=== PATIENT | female | born 1945 | race Caucasian/White ===

== ENCOUNTER → 2017-12-21 07:40 | Outpatient (CLI) | payer BC, SELFPAY ==
--- NOTE | 2017-12-21 | DI.MG.S_ITS ---
UNILATERAL RIGHT DIGITAL SCREENING MAMMOGRAM 3D/2D WITH CAD POST MASTECTOMY: 12/21/2017 CLINICAL: Routine screening. Personal history of left breast cancer. Post left mastectomy. Comparison is made to exams dated: 12/19/2016 mammogram, 12/10/2015 mammogram, and 11/26/2014 mammogram - [facility]. The tissue of the right breast is extremely dense, which lowers the sensitivity of mammography. Current study was also evaluated with a Computer Aided Detection (CAD) system. No significant masses, calcifications, or other findings are seen in the breast. There has been no significant interval change. IMPRESSION: NEGATIVE There is no mammographic evidence of malignancy. A 1 year screening mammogram is recommended. This exam was interpreted at Station ID: [id number]. NOTE: For mammograms, a report in lay terms will be sent to the patient. Approximately 15% of breast malignancies will not be visualized mammographically. In the management of a palpable breast mass, a negative mammogram must not discourage biopsy of a clinically suspicious lesion. Electronically Signed By: Harrison harding/noy:12/21/2017 13:12:50 letter sent: Normal Exam ACR BI-RADS Category 1: Negative 3341F
== END ==
PROVIDERS: Visit Provider Family Medicine
DX: Z12.31 Encounter for screening mammogram for malignant neoplasm of breast (principal); Z85.3 Personal history of malignant neoplasm of breast
CPT/HCPCS: 77063; 77065

== ENCOUNTER → 2018-12-30 07:39 | Outpatient (CLI) | payer BC, SELFPAY ==
--- NOTE | 2018-12-30 | DI.MG.S_ITS ---
UNILATERAL RIGHT DIGITAL SCREENING MAMMOGRAM 3D/2D WITH CAD POST MASTECTOMY: 12/30/2018 CLINICAL: Routine screening. Personal history of left breast cancer. Post left mastectomy. Comparison is made to exams dated: 12/21/2017 mammogram, 12/19/2016 mammogram, and 12/10/2015 mammogram - [facility]. The tissue of right breast is extremely dense, which lowers the sensitivity of mammography. Current study was also evaluated with a Computer Aided Detection (CAD) system. No significant masses, calcifications, or other findings are seen in the breast. There has been no significant interval change. IMPRESSION: NEGATIVE There is no mammographic evidence of malignancy. A 1 year screening mammogram is recommended. This exam was interpreted at Station ID: [id number]. NOTE: For mammograms, a report in lay terms will be sent to the patient. Approximately 15% of breast malignancies will not be visualized mammographically. In the management of a palpable breast mass, a negative mammogram must not discourage biopsy of a clinically suspicious lesion. Electronically Signed By: Otilia buckley/noy:12/30/2018 08:54:05 letter sent: Normal Exam ACR BI-RADS Category 1: Negative 3341F
== END ==
PROVIDERS: Family Provider Family Medicine; Visit Provider Family Medicine
DX: Z12.31 Encounter for screening mammogram for malignant neoplasm of breast (principal); Z80.3 Family history of malignant neoplasm of breast; Z90.12 Acquired absence of left breast and nipple
CPT/HCPCS: 77063; 77067

== ENCOUNTER → 2019-08-05 09:08 | Outpatient (CLI) | payer BC, SELFPAY | PROVIDERS: Family Provider Family Medicine; PCP Family Medicine; Visit Provider Family Medicine | DX: M81.0 Age-related osteoporosis without current pathological fracture (principal); Z78.0 Asymptomatic menopausal state; Z85.3 Personal history of malignant neoplasm of breast; Z87.891 Personal history of nicotine dependence | CPT/HCPCS: 77081 ==

== ENCOUNTER → 2020-01-07 08:12 | Outpatient (CLI) | payer BC, SELFPAY ==
--- NOTE | 2020-01-07 | DI.MG.S_ITS ---
UNILATERAL RIGHT DIGITAL SCREENING MAMMOGRAM 3D/2D WITH CAD POST MASTECTOMY: 01/07/2020 CLINICAL: Routine screening. Personal history of left breast cancer. Comparison is made to exams dated: 12/21/2017 mammogram, 12/19/2016 mammogram, and 12/10/2015 mammogram - [facility]. The tissue of right breast is heterogeneously dense. This may lower the sensitivity of mammography. Current study was also evaluated with a Computer Aided Detection (CAD) system. No significant masses, calcifications, or other findings are seen in the breast. There has been no significant interval change. IMPRESSION: NEGATIVE There is no mammographic evidence of malignancy. A 1 year screening mammogram is recommended. This exam was interpreted at Station ID: [id number]. NOTE: For mammograms, a report in lay terms will be sent to the patient. Approximately 15% of breast malignancies will not be visualized mammographically. In the management of a palpable breast mass, a negative mammogram must not discourage biopsy of a clinically suspicious lesion. Electronically Signed By: Fritz carrasco/noy:01/07/2020 09:25:07 letter sent: Normal Exam ACR BI-RADS Category 1: Negative 3341F
== END ==
PROVIDERS: Family Provider Family Medicine; PCP Family Medicine; Referring Provider Family Medicine; Visit Provider Family Medicine
DX: Z12.31 Encounter for screening mammogram for malignant neoplasm of breast (principal); Z85.3 Personal history of malignant neoplasm of breast
CPT/HCPCS: 77063; 77067

== ENCOUNTER 2020-05-11 08:04 | Day surgery (SDC) | payer BC, SELFPAY ==
[2020-05-11] MEDS: PROPARACAINE 0.5% OPHTH SOL 2 DROPS EYE-OP (09:30)
[2020-05-11] MEDS: CATARACT EYE COMPOUND (10 DROPS/SYRINGE) 3 DROPS EYE-OP (09:31)
[2020-05-11 09:36] VITALS: BP 113/74; PULSE 70; RESP 17; TEMP 36.7; O2SAT 98; BMI 20.9
--- NOTE | 2020-05-11 09:56 | P.OP_ITS ---
Operative Date/Time/Diagnoses Pre-op diagnosis: Nuclear Cataract Left eye Post-op diagnosis: same Procedure & Clinicians Same procedure as scheduled: Yes Surgeon: Jim Duron Anesthesia Type: MAC +/- and Sedation Operative Notes Procedure in detail: Patient brought to the operating suite. Tetracaine drops placed in the left eye. Patient was prepped and draped in sterile manner. Wire lid speculum was placed in the eye. Betadine drops were placed on the eye. This was irrigated. Lidocaine jelly was placed on the eye. A paracentesis port was created with a side-port blade. 0.1 mL 1% preservative free lidocaine was injected into the anterior chamber. The anterior chamber was deepened with viscoelastic. 2.6 mm keratome was used to create a temporal clear corneal incision. Cystotome and Utrata forceps were used to create continuous tear capsulorrhexis. Balanced salt solution was used to hydro dissect the nucleus. The phacoemulsification handpiece was inserted and the nucleus was removed using the stop and chop technique. The irrigation aspiration handpiece was inserted and the remaining cortex was removed. Anterior chamber was deepened with viscoe lastic. An Dodd ZCB00 intraocular lens with a power of 24.5 was injected into the capsular bag. Irrigation aspiration handpiece was inserted and the remaining viscoelastic was removed. Incision was hydrated with balanced salt solution and found to be leak free with pressure with Weck-Jailyn sponges. 0.1 mL Vigamox injected anterior chamber. 0.3 mL Kenalog 10 mg was injected subconjunctivally. Lid speculum was removed. The patient left the operating room in excellent condition. Complications: none Post-operative Condition: stable Disposition: same day surgery
--- NOTE | 2020-05-11 09:56 | PM.PREOP ---
Pre-operative Note Interval Note History & Physical reviewed/Exam performed by Physician: Yes Changes to H&P: No
[2020-05-11] MEDS: PHENYLEPHRINE/LIDOCAINE VIAL (OR) 0.2 ML EYE-OP (10:11)
[2020-05-11] MEDS: TRIAMCINOLONE 50 MG/5 ML VIAL INJ (10:13)
[2020-05-11] MEDS: MOXIFLOXACIN INJ 5 MG/ML VIAL EYE-OP (10:13)
[2020-05-11] MEDS: TETRACAINE 0.5% OPHTH DROPS 4 ML 2 DROPS EYE-OP (10:14)
[2020-05-11] MEDS: LIDOCAINE JELLY 2% 5 ML 1 APPLIC TOP (10:14)
[2020-05-11] MEDS: BALANCED SALT IRRIG SOLN NO.2 500 ML, EPINEPHrine 1 MG IRR (10:15)
[2020-05-11 10:30] VITALS: BP 120/75; PULSE 67; RESP 17; TEMP 36.2; O2SAT 99
[2020-05-11 10:49] VITALS: BP 108/70; PULSE 67; RESP 17; TEMP 36.6; O2SAT 99
--- NOTE | 2020-05-11 10:51 | SUR.PHASEII ---
pt leaving facility in facility by [employer]. Verbal order received from Dr. Duron and francisca Alarcon for pt to be discharged via taxi. pt dressed self without any difficultly, left facility in stable condition, vss.
== END 2020-05-11 11:04 | disposition home or self-care (01) ==
LOC: OR 08:06
PROVIDERS: PCP Family Medicine; Referring Provider Family Medicine; Visit Provider Ophthalmology
PROC: (CPT 66984; principal; 2020-05-11 10:15)
DX: H25.12 Age-related nuclear cataract, left eye (principal)
CPT/HCPCS: 66984; J0171; J2250; J3301

== ENCOUNTER 2020-05-25 09:11 | Day surgery (SDC) | payer BC, SELFPAY ==
[2020-05-25] MEDS: CATARACT EYE COMPOUND (10 DROPS/SYRINGE) 3 DROPS EYE-OP (09:58)
[2020-05-25] MEDS: PROPARACAINE 0.5% OPHTH SOL 2 DROPS EYE-OP (09:58)
[2020-05-25 10:03] VITALS: BP 119/70; PULSE 72; RESP 16; TEMP 36.7; O2SAT 99; BMI 20.9
--- NOTE | 2020-05-25 11:06 | PM.PREOP ---
Pre-operative Note Interval Note History & Physical reviewed/Exam performed by Physician: Yes Changes to H&P: No
--- NOTE | 2020-05-25 11:06 | PM.OP.1 ---
Operative Date/Time/Diagnoses Pre-op diagnosis: Nuclear cataract right eye Procedure & Clinicians Procedure: Cataract Surgery Same procedure as scheduled: Yes Surgeon: Jim Duron Anesthesia Type: MAC +/- and Sedation Operative Notes Procedure in detail: Patient brought to the operating suite. Tetracaine drops placed in the right eye. Patient was prepped and draped in sterile manner. Wire lid speculum was placed in the eye. Betadine drops were placed on the eye. This was irrigated. Lidocaine jelly was placed on the eye. A paracentesis port was created with a side-port blade. 0.1 mL 1% preservative free lidocaine was injected into the anterior chamber. The anterior chamber was deepened with viscoelastic. 2.6 mm keratome was used to create a temporal clear corneal incision. Cystotome and Utrata forceps were used to create continuous tear capsulorrhexis. Balanced salt solution was used to hydro dissect the nucleus. The phacoemulsification handpiece was inserted and the nucleus was removed using the stop and chop technique. The irrigation aspiration handpiece was inserted and the remaining cortex was removed. Anterior chamber was deepened with viscoelastic. An Dodd ZCB00 intraocular lens with a power of 24.0 was injected into the capsular bag. Irrigation aspiration handpiece was inserted and the remaining viscoelastic was removed. Incision was hydrated with balanced salt solution and found to be leak free with pressure with Weck-Jailyn sponges. 0.1 mL Vigamox injected anterior chamber. 0.3 mL Kenalog 10 mg was injected subconjunctivally. Lid speculum was removed. The patient left the operating room in excellent condition. Complications: none Post-operative Condition: stable Disposition: same day surgery
[2020-05-25] MEDS: PHENYLEPHRINE/LIDOCAINE VIAL (OR) 0.2 ML EYE-OP (11:54)
[2020-05-25] MEDS: CHONDROIDTIN/SOD HYALURONATE 1.05 ML SYRINGE INTRAOCULA (11:54)
[2020-05-25] MEDS: TRIAMCINOLONE 50 MG/5 ML VIAL INJ (11:54)
[2020-05-25] MEDS: MOXIFLOXACIN INJ 5 MG/ML VIAL EYE-OP (11:54)
[2020-05-25] MEDS: LIDOCAINE JELLY 2% 5 ML 1 APPLIC TOP (11:55)
[2020-05-25] MEDS: TETRACAINE 0.5% OPHTH DROPS 4 ML 2 DROPS EYE-OP (11:55)
[2020-05-25] MEDS: BALANCED SALT IRRIG SOLN NO.2 500 ML, EPINEPHrine 1 MG IRR (11:55)
[2020-05-25 12:29] VITALS: BP 121/73; PULSE 60; RESP 16; TEMP 36.4; O2SAT 100
--- NOTE | 2020-05-25 12:32 | SUR.PHASEII ---
Stable post op, left when ready, left in stable condition.
== END 2020-05-25 12:26 | disposition home or self-care (01) ==
PROVIDERS: PCP Family Medicine; Referring Provider Ophthalmology; Visit Provider Ophthalmology
PROC: (CPT 66984; principal; 2020-05-25 11:15)
DX: H25.11 Age-related nuclear cataract, right eye (principal)
CPT/HCPCS: 66984; J0171; J2250; J3010; J3301

== ENCOUNTER → 2021-04-21 08:03 | Outpatient (CLI) | payer BC, SELFPAY ==
--- NOTE | 2021-04-21 | DI.MG.S_ITS ---
UNILATERAL RIGHT DIGITAL SCREENING MAMMOGRAM 3D/2D WITH CAD: 04/21/2021 CLINICAL: Routine screening. Personal history of left breast cancer. Comparison is made to exams dated: 01/07/2020 mammogram, 12/30/2018 mammogram, and 12/21/2017 mammogram - [facility]. The tissue of right breast is heterogeneously dense. This may lower the sensitivity of mammography. Current study was also evaluated with a Computer Aided Detection (CAD) system. No significant masses, calcifications, or other findings are seen in the breast. There has been no significant interval change. IMPRESSION: NEGATIVE There is no mammographic evidence of malignancy. A 1 year screening mammogram is recommended. This exam was interpreted at Station ID: [id number]. NOTE: For mammograms, a report in lay terms will be sent to the patient. Approximately 15% of breast malignancies will not be visualized mammographically. In the management of a palpable breast mass, a negative mammogram must not discourage biopsy of a clinically suspicious lesion. Electronically Signed By: Fritz carrasco/noy:04/21/2021 08:40:01 letter sent: Normal Exam ACR BI-RADS Category 1: Negative 3341F
== END ==
PROVIDERS: PCP Family Medicine; Referring Provider Family Medicine; Visit Provider Family Medicine
DX: Z12.31 Encounter for screening mammogram for malignant neoplasm of breast (principal); Z85.3 Personal history of malignant neoplasm of breast
CPT/HCPCS: 77063; 77067

== ENCOUNTER → 2021-11-09 08:31 | Outpatient (CLI) | payer BC, SELFPAY | PROVIDERS: PCP Family Medicine; Referring Provider Nurse Practitioner Family; Visit Provider Nurse Practitioner Family | DX: M85.89 Other specified disorders of bone density and structure, multiple sites (principal); Z78.0 Asymptomatic menopausal state; Z90.710 Acquired absence of both cervix and uterus; Z79.83 Long term (current) use of bisphosphonates | CPT/HCPCS: 77080 ==

== ENCOUNTER 2022-01-18 12:05 | Emergency (ER) | payer BC, SELFPAY ==
[2022-01-18 12:13] VITALS: BP 156/80; PULSE 77; RESP 14; TEMP 35.9; O2SAT 99; BMI 20.7
--- NOTE | 2022-01-18 12:16 | DI.RAD.S_ITS ---
PROCEDURE: XR HAND RT MIN 3V INDICATIONS: bit by dog TECHNIQUE: 3 views of the hand acquired. COMPARISON: None. FINDINGS: Bones: No acute fractures or dislocations. Carpal bones are normally aligned. No suspicious bony lesions. Multifocal degenerative changes are seen throughout the interphalangeal joints of the fingers and at the 1st carpometacarpal and metacarpophalangeal joints. Soft tissues: No suspicious soft tissue calcifications. No radiopaque foreign body. IMPRESSION: No acute osseous abnormality. If clinical suspicion and/or symptoms persist, additional imaging with repeat plain films, or advanced imaging (e.g. CT, MRI) may be helpful for further assessment. Dictated by: Norris Garcia M.D. on 01/18/2022 at 12:54 Approved by: Norris Garcia M.D. on 01/18/2022 at 12:55
--- NOTE | 2022-01-18 12:42 | ED_ITS ---
HPI - Animal Bite <Luh Khan, [facility] - Last Filed: 01/18/22 15:27> General Chief Complaint: Animal Bite Stated Complaint: dog bite, sent by [facility] Time Seen by Provider: 01/18/22 12:36 Source: patient Mode of arrival: Ambulatory History of Present Illness HPI narrative: This is a 76-year-old female who presents to the emergency department complaining of a dog bite to the dorsum of her right hand which this morning just prior to arrival, she was seen over the that sent over to the emergency department for suture repair and evaluation of her moderate to large size laceration versus avulsion. It is approximately 3 cm long, she does not have any movility deficit. She endorses that she is right-handed, denies any numbness or tingling, feels like her fingers are warm without any sensation deficits or change. She can fully flex and fully extend her fingers. She reports a history of presumed penicillin allergy without known reaction, this was when she was a child. She states the dog that bit her was vaccinated and up-to-date on his rabies vaccines. She states that the dog was fearful when it bit her, it was not acting erratically. She does not remember if her last tetanus vaccination was within the last five years and states that she is willing to receive one today. Related Data Home Medications Medication Instructions Recorded Confirmed CHOLECALCIFEROL (VITAMIN D3) 4,000 iu PO QDAY ##0 09/26/10 05/25/20 (Vitamin D3) [LYSINE] 600 mg PO Q DAY ##0 09/26/10 05/25/20 [OCCUVITE] 1 tab PO QDAY ##0 07/24/12 05/25/20 alendronate 70 mg tablet (Fosamax) 70 mg PO WEEKLY 05/11/20 05/25/20 biotin 1,000 mcg chewable tablet 1,000 mcg PO DAILY 05/11/20 05/25/20 Previous Rx's Medication Instructions Recorded estradiol 0.01% (0.1 mg/gram) 1 gm vaginal 2XWK ##1 10/16/16 vaginal cream (Estrace) doxycycline hyclate 100 mg tablet 100 mg PO BID 7 days #14 tabs 01/18/22 metronidazole 500 mg tablet 500 mg PO TID 7 days #21 tabs 01/18/22 mupirocin 2 % topical ointment 1 applic topical DAILY #15 grams 01/18/22 Allergies Allergy/AdvReac Type Severity Reaction Status Date / Time Penicillins Allergy Unknown LONG AGO, Verified 01/18/22 12:13 REACTION UNKNOWN Review of Systems <EVE Coyne - Last Filed: 01/18/22 15:27> Review of Systems Narrative: General: denies fever, chills, malaise, sweats, fatigue Head/Neck: denies headache, neck pain, dizziness Eyes: denies visual changes, eye pain Cardio: denies chest pain, palpitations, edema Respiratory: denies dyspnea, cough, orthopnea MSK: denies joint pain, muscle weakness, endorses skin tear/laceration on the dorsum of her right, patient is right-handed Skin: denies rash, itching, skin lesions or other Neuro: denies numbness, tingling Patient History <EVE Coyne - Last Filed: 01/18/22 15:27> Surgical History History of hip replacement History of tonsillectomy Status post appendectomy Status post laparoscopy Status post partial mastectomy Status post tubal ligation Family History Mother Dementia Stroke Social History household members: spouse Smoking Status: Former smoker alcohol intake: current Smoking Status: Former smoker alcohol intake frequency: 0-2 drinks per day Substance Use Type: does not use Exam <EVE Coyne - Last Filed: 01/18/22 15:27> Narrative Exam Narrative: Independently reviewed vitals signs and nursing notes. General: cooperative, comfortable, in no acute distress, well groomed Head: atraumatic, symmetrical facial expressions Neck: supple Eyes: equal round and reactive, EOMI, conjunctiva normal Nose: nares patent, no rhinorrhea Mouth/Throat: moist mucus membranes Cardiovascular: regular rate and rhythm, no peripheral edema, warm extremities Respiratory: normal effort, able to speak in complete sentences, no audible wheezing, stridor, or rales. No retractions or tachypnea. MSK: moves all extremities, neurovascularly intact, no weakness, normal tone Skin: brisk capillary refill, no rash, no erythema, skin tear verses laceration on the dorsum of her right hand approximately 3 cm long, bleeding is controlled with a pressure dressing, this was cleaned and irrigated over at [facility], rinsed with normal saline to rehydrate the skin flap, suture repair completed without complication, patient received seven sutures, two of them were horizontal mattress. No range of motion deficit to her right hand, wrist, fingers, no sensation deficit, patient able to fully close and extend all of her fingers. Neuro: normal speech and cognition, A&O x3 Psych: mental status is grossly normal, congruent mood, normal affect, pleasant and cooperative Initial Vital Signs Initial Vital Signs: Vital Signs Temperature 96.7 F L 01/18/22 12:13 Pulse Rate 77 01/18/22 12:13 Respiratory Rate 14 01/18/22 12:13 Blood Pressure 156/80 H 01/18/22 12:13 Pulse Oximetry 99 01/18/22 12:13 Oxygen Delivery Method 01/18/22 12:13 <Chandana Garcia DO - Last Filed: 01/19/22 14:29> Initial Vital Signs Initial Vital Signs: Vital Signs Temperature 96.7 F L 01/18/22 12:13 Pulse Rate 77 01/18/22 12:13 Respiratory Rate 14 01/18/22 12:13 Blood Pressure 156/80 H 01/18/22 12:13 Pulse Oximetry 99 01/18/22 12:13 Oxygen Delivery Method 01/18/22 12:13 Procedures <EVE Coyne - Last Filed: 01/18/22 15:27> Laceration Repair Laceration 1: Site: hand Side (If applicable): right Size (cm): 3 Description: flap and irregular Depth: simple, single layer Local Anesthetic: lidocaine 1% and with bicarb Amount of anesthesia used (mL): 6 Pre-repair: wound explored, irrigated extensively and deep structures intact Skin layer closed with: nylon Skin layer suture size: 5-0 Number of sutures: 7 Technique: simple, interrupted Course <EVE Coyne - Last Filed: 01/18/22 15:27> Orders Ordered: Discontinued Medications Acetaminophen (Acetaminophen 325 Mg Tablet) 650 mg PO NOW ONE Stop: 01/18/22 12:52 Last Admin: 01/18/22 13:16 Dose: 650 mg Documented By: NR Diphtheria/Tetanus/Acell Pertussis (Tet,Diph,Pertuss(Acell),Vac/Pf 0.5 Ml Syringe) 0.5 ml IM .ONCE ONE Stop: 01/18/22 12:48 Last Admin: 01/18/22 13:17 Dose: 0.5 ml Documented By: NR Doxycycline Hyclate (Doxycycline Hyclate 100 Mg Tablet) 100 mg PO NOW ONE Stop: 01/18/22 13:59 Last Admin: 01/18/22 14:05 Dose: 100 mg Documented By: NR Lidocaine/Sodium Bicarbonate (Lido 1%/Sod Bicarb 8.4% (10ml) 10 Ml Syringe) 10 ml INJ NOW ONE Stop: 01/18/22 12:48 Last Admin: 01/18/22 13:18 Dose: 10 ml Documented By: NR Metronidazole (Metronidazole 500 Mg Tablet) 500 mg PO NOW ONE Stop: 01/18/22 13:59 Last Admin: 01/18/22 14:06 Dose: 500 mg Documented By: NR Moxifloxacin HCl (Moxifloxacin Hcl 400 Mg Tablet) 400 mg PO NOW ONE Stop: 01/18/22 13:14 Last Admin: 01/18/22 14:10 Dose: Not Given Documented By: NR Vital Signs Vital signs: Vital Signs - 8 hr 01/18/22 12:13 Temperature 96.7 F L Pulse Rate 77 Respiratory Rate 14 Blood Pressure 156/80 H Pulse Oximetry 99 Oxygen Delivery Method Room Air <Chandana Garcia DO - Last Filed: 01/19/22 14:29> Orders Ordered: Discontinued Medications Acetaminophen (Acetaminophen 325 Mg Tablet) 650 mg PO NOW ONE Stop: 01/18/22 12:52 Last Admin: 01/18/22 13:16 Dose: 650 mg Documented By: NR Diphtheria/Tetanus/Acell Pertussis (Tet,Diph,Pertuss(Acell),Vac/Pf 0.5 Ml Syringe) 0.5 ml IM .ONCE ONE Stop: 01/18/22 12:48 Last Admin: 01/18/22 13:17 Dose: 0.5 ml Documented By: NR Doxycycline Hyclate (Doxycycline Hyclate 100 Mg Tablet) 100 mg PO NOW ONE Stop: 01/18/22 13:59 Last Admin: 01/18/22 14:05 Dose: 100 mg Documented By: NR Lidocaine/Sodium Bicarbonate (Lido 1%/Sod Bicarb 8.4% (10ml) 10 Ml Syringe) 10 ml INJ NOW ONE Stop: 01/18/22 12:48 Last Admin: 01/18/22 13:18 Dose: 10 ml Documented By: NR Metronidazole (Metronidazole 500 Mg Tablet) 500 mg PO NOW ONE Stop: 01/18/22 13:59 Last Admin: 01/18/22 14:06 Dose: 500 mg Documented By: NR Moxifloxacin HCl (Moxifloxacin Hcl 400 Mg Tablet) 400 mg PO NOW ONE Stop: 01/18/22 13:14 Last Admin: 01/18/22 14:10 Dose: Not Given Documented By: NR Vital Signs Vital signs: Vital Signs - 8 hr 01/18/22 12:13 Temperature 96.7 F L Pulse Rate 77 Respiratory Rate 14 Blood Pressure 156/80 H Pulse Oximetry 99 Oxygen Delivery Method Room Air MDM - Animal Bite <Luh Khan [facility] - Last Filed: 01/18/22 15:27> Imaging Data Extremity x-ray #1: Radiologist's Impression: PROCEDURE:? XR HAND RT MIN 3V ? INDICATIONS:? bit by dog ? TECHNIQUE:? 3 views of the hand acquired.? ? COMPARISON:? None. ? FINDINGS:? ? Bones:? No acute fractures or dislocations.? Carpal bones are normally aligned.? No suspicious bony lesions.? Multifocal degenerative changes are seen throughout the interphalangeal joints of the fingers and at the 1st carpometacarpal and metacarpophalangeal joints. ? Soft tissues:? No suspicious soft tissue calcifications.? No radiopaque foreign body. ? ? IMPRESSION:? No acute osseous abnormality.? If clinical suspicion and/or symp toms persist, additional imaging with repeat plain films, or advanced imaging (e.g. CT, MRI) may be helpful for further assessment. ? ? Dictated by: Norris Garcia M.D. on 01/18/2022 at 12:54 ? ? Approved by: Norris Garcia M.D. on 01/18/2022 at 12:55 ? MDM Narrative Medical decision making narrative: This is a pleasant 76-year-old female who presents to the emergency department complaining of a dog bite to the dorsum of her right hand which happened earlier this morning. She was seen over at the [facility] who cleaned and irrigated out her wound, sent her over to the emergency department for evaluation because they reported seeing tendons. Patient's tetanus was updated, states that it had been more than five years, she has a known allergy to penicillin but states that she was a child and does not remember what her allergy was, discussed antibiotic prophylaxis for animal bite with the pharmacist, moxifloxacin was not available at her pharmacy or at the hospital, mutual decision making with patient and she agrees to instead try Flagyl and doxycycline for one week. She received seven sutures in the dorsum of her right hand, two of them were horizontal mattress as there were two flaps of skin involved and it brought the wound edges together nicely. Encouraged her to have her sutures removed in 10 days, she was prescribed the antibiotics stated above as well as mupirocin ointment, encouraged her to keep it covered, clean, wash it twice a day gently and follow-up with her primary doctor as needed. She is given strict return precautions, x-ray was negative for acute osseous abnormality and foreign body. Patient is appropriate and amenable to discharge home. Vital signs are stable on repeat examination is unremarkable. Patient has been informed of results. Patient has been given strict return to ER precautions for any new or worsening symptoms. Patient understands to follow up closely with outpatient providers as instructed. Patient understands plan and agrees to discharge home. All questions and concerns answered at this time. Discharge Plan Departure Patient Disposition: Home Clinical Impression: Animal bite, Dog bite Instructions: DI for Dog Bite Activity Restrictions/Additional Instructions: *You have been diagnosed with a dog bite to your right hand. Please keep this covered as long as you have sutures in and use an antibiotic and wear a glove if you are working on your pottery. Please use antibiotic ointment twice a day for the next five days. Please remove her sutures in 10 days, take the antibiotics as they are prescribed you received your 1st doses in the emergency department today. Follow-up with your primary care provider as needed on [place]. I hope you feel better soon, please keep it clean, gently wash it with soap and water, and I hope you have a nice vacation. *What to do: *Please continue to take your regular medications as directed. [x ] New medication prescriptions sent to your pharmacy: [[facility] ] [ ] New medication written as a paper prescription [ ] No new medications given *Please follow up with your primary care provider in 2-3 days, call for an appointment. Let them know you were seen in the Emergency Department and that we asked that you be seen for follow-up. We will electronically transmit a record of today's note if your PCP is in our system *If you do not have a primary care provider please contact [phone] to establish care with one of the [facility] primary care providers. *Return to Emergency Department if you should have any new, worsening or concerning symptoms, such as [fever greater than 101F, chills, worsening pain, persistent vomiting or other bothersome symptoms] Prescriptions: New metronidazole 500 mg tablet 500 mg PO TID 7 Days Qty: 21 0RF doxycycline hyclate 100 mg tablet 100 mg PO BID 7 Days Qty: 14 0RF mupirocin 2 % ointment 1 applic topical DAILY Qty: 15 0RF No Action CHOLECALCIFEROL (VITAMIN D3) (Vitamin D3) 4,000 iu PO QDAY Qty: 0 [LYSINE] 600 mg PO Q DAY Qty: 0 [OCCUVITE] 1 tab PO QDAY Qty: 0 estradiol [Estrace] 0.01 % cream 1 gm Vaginal 2XWK Qty: 1 3RF biotin 1,000 mcg Tablet,Chewable 1,000 mcg PO DAILY alendronate [Fosamax] 70 mg Tablet 70 mg PO WEEKLY Referrals: Rosa Maria Acosta ARNP [Primary Care Provider] - Visit Report Forms: Patient Portal/API <Chandana Garcia DO - Last Filed: 01/19/22 14:29> [facility] ED Attending Mary Attestation: I was immediately available in the department for consultation. This documentation has been reviewed and I agree with assessment and plan. Supervised by Chandana Garcia DO
[2022-01-18] MEDS: ACETAMINOPHEN 325 MG TABLET 650 MG PO (13:16)
[2022-01-18] MEDS: TET,DIPH,PERTUSS(ACELL),VAC/PF 0.5 ML SYRINGE IM (13:17)
[2022-01-18] MEDS: LIDO 1%/SOD BICARB 8.4% (10ML) 10 ML SYRINGE INJ (13:18)
[2022-01-18] MEDS: DOXYCYCLINE HYCLATE 100 MG TABLET PO (14:05)
[2022-01-18] MEDS: metroNIDAZOLE 500 MG TABLET PO (14:06)
== END 2022-01-18 14:21 | disposition home or self-care (01) ==
PROVIDERS: Emergency Provider Nurse Practitioner Critical Care Medicine; PCP Nurse Practitioner Family
DX: S61.451A Open bite of right hand, initial encounter (principal); W54.0XXA Bitten by dog, initial encounter; Z23 Encounter for immunization
CPT/HCPCS: 12002; 73130; 90471; 99283; 99284; 90715

== ENCOUNTER 2022-09-27 11:50 | Day surgery (SDC) | payer BC, SELFPAY ==
[2022-09-19 09:34] VITALS: BMI 21.4
[2022-09-27] VITALS (9 sets, daily range): BP systolic 108–162; BP diastolic 52–91; PULSE 67–104; RESP 13–18; TEMP 36.1–36.6; O2SAT 97–100; BMI 21.4
--- NOTE | 2022-09-27 06:00 | DI.RAD.S_ITS ---
PROCEDURE: XR HIP W PEL IF DONE LT 2V INDICATIONS: AMGALYS TECHNIQUE: AP pelvis and lateral view of the left hip acquired. COMPARISON: [facility], CR, XR HIP W PEL IF DONE LT 2V, 09/27/2022, 15:30. [facility], [place], XR PELVIS WITH LATERAL HIP LEFT, 07/19/2022, 8:20. FINDINGS: Bones: Patient is status post left hip arthroplasty, with hardware components in expected positions. The hip joint appears congruent. The visualized bony structures appear intact. Prior right hip arthroplasty is noted. Soft tissues: Overlying postoperative changes are noted. No suspicious soft tissue densities. IMPRESSION: Expected postsurgical changes. Dictated by: oDmi Krueger M.D. on 09/28/2022 at 15:34 Approved by: Domi Krueger M.D. on 09/28/2022 at 15:34
[2022-09-27] MEDS: ACETAMINOPHEN 325 MG TABLET 975 MG PO (13:17)
[2022-09-27] MEDS: CELECOXIB 200 MG CAPSULE PO (13:18)
[2022-09-27] MEDS: VANCOMYCIN 1,000 MG/200 ML PIGGYBACK 200 MG IV (13:56)
--- NOTE | 2022-09-27 14:09 | PM.PREOP ---
Pre-operative Note Interval Note History & Physical reviewed/Exam performed by Physician: Yes Changes to H&P: No
[2022-09-27] MEDS: CEFAZOLIN 2 GM/100 ML PREMIX 100 ML IV ×2 (14:35→22:24)
[2022-09-27] MEDS: TRANEXAMIC ACID 1,000 MG VIAL 2000 MG INJ ×2 (14:38→16:30)
[2022-09-27] MEDS: LACTATED RINGERS 1,000 ML 42 ML IV ×3 (14:46→18:06)
[2022-09-27 14:48] LABS: COVID19 -Nasal RAPID Negative (Negative)
--- NOTE | 2022-09-27 14:53 | SUR.OPER ---
Supine on padded Startex table with bilateral legs secured in padded positioning boots and suspended in positioning spars, operative leg in traction per surgeon. Head on one pillow. Arm on non-operative side secured on padded armboard <90 degrees abduction. Arm on operative side padded and resting across chest then secured with tape over sheet. Padded perineal post in place per surgeon. Pt positioned per direction and supervision of Dr Eng.
[2022-09-27] MEDS: BUPIVACAINE 0.25% (PF) 60 ML, EPINEPHrine 0.3 MG INJ (15:00)
[2022-09-27] MEDS: BUPIVACAINE LIPOSOME 266 MG/20 ML VIAL INJ (15:01)
[2022-09-27] MEDS: SODIUM CHLORIDE IRRIG SOLUTION 250 ML, POVIDONE-IODINE SPONGE STICKS 1 APPLIC IRR (16:30)
--- NOTE | 2022-09-27 17:01 | P.OP_ITS ---
Operative Date/Time/Diagnoses Date of procedure: 09/27/22 Time of procedure: 14:30 Pre-op diagnosis: left hip OA Post-op diagnosis: same Procedure & Clinicians Procedure: left total hip arthroplasty Same procedure as scheduled: Yes Indications: The patient has had progressively worsening left hip pain with radiographic changes consistent with arthritis. Non-operative management has failed and the patient has requested total hip replacement. The risks, benefits and alternatives to surgery were discussed with the patient prior to proceeding. Risks discussed included, but were not limited to, failure to relieve pain, leg length discrepancy, dislocation, stiffness, infection, nerve damage, deep venous thrombosis, pulmonary embolism, stroke, coma, heart attack, permanent paralysis and , as well as the potential need for eventual revision of the prosthetic. Surgeon: Leslie Eng Ferry Boat Captain: Jacob Torres Anesthesia Type: General and Spinal Operative Notes Findings: Severe left hip osteoarthritis, adequate bone and stability Closure Type: primary Specimen(s): none sent Prosthetic devices, grafts, tissues, transplants, or devices: Eng and Nephew size 50 R3 cup, size 3 standard offset anthology, 32 x +0 cobalt chrome head, neutral poly liner, two 6.5 mm screw Estimated Blood Loss (mL): 250 Blood products transfused: none Procedure in detail: The patient was brought to the operating room. Patient was carefully positioned in the supine position. Time-out was performed and antibiotics were given. Anesthesia was induced. She was positioned in the on the table in order to allow hyperextension of the hip. The left lower extremity was prepped and draped in a standard sterile fashion. An anterior left hip incision was made 1 fingerbreadth lateral to the anterior superior iliac spine and extended distally towards the greater trochanter. Dissection was carried out through skin and subcutaneous tissues. Superficial hemostasis was achieved. The fascia over the tensor fascia skye was defined and incised with a knife. Two Allis clamps were used to grasp the fascia. Tensor fascia skye was retracted laterally. A gelpi retractor was placed. Dissection was carried out down along the neck. The circumflex vessels were carefully identified and cauterized with the Aqua Mantis. There was good visualization of the femoral neck. A Cobra was placed superior to the neck and the gluteus fibers were carefully stripped from that superior aspect of the capsule. A 2nd retractor was placed along the inferior aspect of the neck. The rectus insertion along the capsule was partially released. A 3rd retractor that was then gently placed over the rim of the acetabulum under the rectus. Capsule was carefully incised and released from the intertrochanteric line circumferentially superior to the mid sagittal line and inferiorly to the mid sagittal line until the lesser trochanter was palpable. A tag stitch was placed both in the superior and inferior limb of the capsular insertion. Along the acetabulum capsule was also released up to the mid sagittal 12:00 position. A portion of the labrum was resected. A saw was used to perform an osteotomy at the level of the intertrochanteric line and the junction of the superior femoral neck leaving approximately 1 finger breath of residual inferior neck above the lesser trochanter. A 2nd cut was made along the femoral neck at the base of the head and a napkin ring of neck was removed. Corkscrew was placed in the femoral head and the head was removed without difficulty. Retractors were then repositioned around the acetabulum. Residual labrum was resected and additional osteophytes were removed. A reamer that was 4 mm below the templated size was placed by hand in the acetabulum and it was reamed to centralize the acetabulum. It was then reamed up to 2 under the templated size and fluoroscopy was brought in to confirm the position of the reaming and depth of reaming. I reamed 1 under the anticipated size. A trial cup was placed and noted that it was appropriately sized and fluoroscopy confirmed position and depth. The component was open and inserted without difficulty fluoroscopic imaging was used to confirm that the cup had been adequately seated and was well positioned. It was further stabilized with 2 screws. Neutral poly liner was placed. The cup was tested and noted to be stable. Attention was then directed to the femur. The femur was gently hyperextended additional capsular release was performed as needed in order to allow adequate visualization of the proximal femur with elevation of the femur. Patient was placed in a hyperextended slightly adducted position with maximum external rotation. Box osteotome was used to check for any residual neck as well as sclerotic bone along the trochanter. [place] pepper was placed in the femur. Additional broaching was performed. Canal finder was used to determine the alignment of the canal and position. Size 1 broach was placed. The canal was then appropriately broached up to the templated size as long as there was adequate stability of the broach and serial advancement of the broach without excessive impingement. Specific attention was directed at avoiding varus attempting to direct the distal aspect of the broach more anteriorly and avoiding excessive anteversion. Trial reduction showed acceptable range of motion, good stability, no posterior impingement, adventist of leg length and appropriate lateral shuck. I also hyperflexed the hip and checked that there was no impingement anteriorly and there was good stability with flexion, adduct ion and internal rotation. Marcaine and Exparel were injected.. The stem was placed without difficulty. Repeat trial reduction and x-ray showed acceptable overall position, length, and no evidence of the femoral fracture. Final head was placed. Wound was meticulously irrigated with normal saline. The hip was reduced and additional Exparel and Marcaine were injected. The capsule was closed with interrupted nonabsorbable sutures. The fascia of the tensor was closed with interrupted and running Vicryl. No drain was placed. Any tensor fascia skye muscle that appeared to be contused or injured which was a minimal amount was carefully resected. Capsule around the tensor was injected with Exparel and Marcaine. The skin was closed with barbed stitches for the subcutaneous tissue and skin. We also used surgical glue. The wound was dressed sterilely. Brief Betadine soak was also used and was meticulously irrigated with normal saline. Patient was transferred to recovery room in satisfactory condition. Complications: none Post-operative Condition: stable Disposition: Acute Care Plan for aftercare: The patient will be maintained on a standard total hip replacement protocol with weight bearing as tolerated and anterior hip precautions. The patient will receive Aspirin and sequential compression devices for DVT prophylaxis. The patient will be discharged home when safe for the home environment.
[2022-09-27] MEDS: hydrOXYzine pamoate 25 MG CAPSULE PO (17:15)
[2022-09-27] MEDS: OXYCODONE IR 5 MG TABLET PO ×3 (17:16→21:47)
[2022-09-27] MEDS: ONDANSETRON 4 MG/2 ML INJ IV (17:17)
--- NOTE | 2022-09-27 17:20 | DI.RAD.S_ITS ---
PROCEDURE: XR HIP W PEL IF DONE LT 2V INDICATIONS: TOTAL LEFT HIP REPLACEMENT TECHNIQUE: Intraoperative fluoroscopy for left hip replacement. COMPARISON: None. FINDINGS: Intraoperative fluoroscopic images demonstrate left hip arthroplasty components in expected location. The hip joint is congruent. No unexpected fractures. IMPRESSION: Expected intraoperative appearance of left hip arthroplasty components. Dictated by: Nuris Bean M.D. on 09/27/2022 at 18:08 Approved by: Nuris Bean M.D. on 09/27/2022 at 18:09
[2022-09-27] MEDS: IBUPROFEN 400 MG TABLET PO (18:05)
[2022-09-27] MEDS: ACETAMINOPHEN 325 MG TABLET 650 MG PO (18:06)
[2022-09-27] MEDS: ASPIRIN EC 81 MG TABLET PO (21:47)
[2022-09-27] MEDS: DOCUSATE 100 MG CAPSULE PO (21:47)
[2022-09-28] VITALS: BP 129/70; PULSE 98; RESP 16; TEMP 36.9; O2SAT 99
[2022-09-28] MEDS: IBUPROFEN 400 MG TABLET PO ×3 (00:12→11:51)
[2022-09-28] MEDS: ACETAMINOPHEN 325 MG TABLET 650 MG PO ×3 (00:13→13:33)
[2022-09-28 04:00] VITALS: BP 112/62; PULSE 84; RESP 17; TEMP 36.4; O2SAT 98
[2022-09-28 04:53] LABS: Hematocrit 29.8 % (36-46); Hemoglobin 10.1 g/dL (12.0-16.0)
[2022-09-28] MEDS: OXYCODONE IR 5 MG TABLET PO (05:17)
[2022-09-28] MEDS: CEFAZOLIN 2 GM/100 ML PREMIX 100 ML IV (06:02)
--- NOTE | 2022-09-28 06:45 | P.DS_ITS ---
History of Present Illness History of Present Illness Date Patient Seen: 09/28/22 Time Patient Seen: 06:45 Chief complaint: LT MAGALYS Narrative: Operative Date/Time/Diagnoses Date of procedure: 09/27/22 Time of procedure: 14:30 Pre-op diagnosis: left hip OA Post-op diagnosis: same Procedure & Clinicians Procedure: left total hip arthroplasty Same procedure as scheduled: Yes Indications: The patient has had progressively worsening left hip pain with radiographic changes consistent with arthritis. Non-operative management has failed and the patient has requested total hip replacement. The risks, benefits and alternatives to surgery were discussed with the patient prior to proceeding. Risks discussed included, but were not limited to, failure to relieve pain, leg length discrepancy, dislocation, stiffness, infection, nerve damage, deep venous thrombosis, pulmonary embolism, stroke, coma, heart attack, permanent paralysis and , as well as the potential need for eventual revision of the prosthetic. Surgeon: Leslie Eng Assistant News Director: Jacob Torres Anesthesia Type: General and Spinal Operative Notes Findings: Severe left hip osteoarthritis, adequate bone and stability Closure Type: primary Specimen(s): none sent Prosthetic devices, grafts, tissues, transplants, or devices: Eng and Nephew size 50 R3 cup, size 3 standard offset anthology, 32 x +0 cobalt chrome head, neutral poly liner, two 6.5 mm screw Estimated Blood Loss (mL): 250 Blood products transfused: none Discharge Providers Provider Discharge Date: 09/28/22 Primary care physician: EVE Evans Consults: 09/27/22 17:38 Consult to Discharge Planning Routine Comment: Consult to Physical Therapy Evaluate & Treat Comment: Physician Instructions: post op MAGALYS protocol Discharge provider: Jessica Gonzalez PA-C Summary Hospital Course Discharge Diagnosis: Left hip osteoarthritis, s/p left total hip arthroplasty Hospital Course: Ms Zarate's hospital course was unremarkable. On the morning of POD# 1, she had not yet worked w/ PT but had been OOB multiple times during the evening. She was voiding and eating without difficulty and her pain was well-controlled with oral medication. Exam Vital Signs (past 8 hours): - 09/28/22 00:00 09/28/22 04:00 Temperature 98.4 F 97.6 F Pulse Rate 98 H 84 Respiratory Rate 16 17 Blood Pressure 129/70 112/62 Pulse Oximetry 99 98 Oxygen Delivery Method Room Air Oxygen Flow Rate 0 Narrative Exam Narrative: 5/5 strength in hip flexors, quadriceps, hamstrings, DF, PF, EHL on left. Sensation to light touch intact throughout LLE. Calves soft, compressible, nontender and without palpable cords or masses. Objective Labs 09/28/22 04:15 Labs: Laboratory Results - last 24 hr 09/27/22 09/28/22 14:30 04:15 Hgb 10.1 L Hct 29.8 L SARS-CoV-2 (PCR) Negative PFSH Medical History (Updated 09/19/22 @ 10:13 by Marcy Carrillo RN) Anesthesia complication BCC (basal cell carcinoma) (09/14/22) Breast cancer, left (1998) Deviated septum History of COVID-19 (10/2021) Surgical History (Updated 09/19/22 @ 09:59 by Marcy Carrillo RN) History of bilateral tubal ligation History of left mastectomy (1998) History of tonsillectomy History of total replacement of right hip (2009) Hx of appendectomy Hx of bilateral cataract extraction Status post appendectomy Status post laparoscopy Status post partial mastectomy Status post tubal ligation Family History Mother Dementia Stroke Social History household members: spouse Smoking Status: Former smoker alcohol intake: current Discharge Assessment & Plan Assessment and Plan Assessment: Left hip osteoarthritis, s/p left total hip arthroplasty Plan of Treatment: D/c home after PT if PT agrees. Anterior hip precautions. ASA BID x 6 weeks for VTE prophylaxis. Multimodal pain control - pt has all post-op rxs already. F/u in office in 2 weeks. Discharge Plan Discharge Plan Patient Disposition: Home Discharge orders & Medications Discharge Orders: Discharge (Order); Ordered 09/28/22 Ordered By: Jessica Gonzalez Prescriptions: Continued lysine 500 mg Tablet 500 mg PO DAILY Qty: 0 cholecalciferol (vitamin D3) [Vitamin D3] 50 mcg (2,000 unit) Tablet 100 mcg PO DAILY Qty: 0 Ocuvite Tablet 1 tab PO DAILY Qty: 0 estradiol [Estrace] 0.01 % cream 1 gm Vaginal 2XWK Qty: 1 3RF alendronate [Fosamax] 70 mg Tablet 70 mg PO WEEKLY mupirocin 2 % ointment 1 applic topical DAILY Qty: 15 0RF Follow up/Referrals: Rosa Maria Acosta ARNP [Primary Care Provider] - Leslie Eng MD [Physician] - As previously scheduled (Follow up w/ Jessica Gonzalez PA-C, on 10/13/2022 @ 8:30 am at [facility] office in [place].) Diet/Activity/Treatments Diet: Diet as Tolerated Activity: Weightbearing as tolerated to left leg. Anterior hip precautions. Cold/Heat Therapy: Ice to hip as needed for pain. Skin/Wound/Dressing Care Report to your healthcare provider any signs of infection, such as:: chills, fever, night sweats, unusual drainage and unusual redness Dressing: May shower. Leave Aquacel dressing in place until follow up in office. No bathing or otherwise soaking incision. Call the office if the dressing becomes saturated inside. Visit Report/Discharge Packet Instructions: DI for Hip Replacement Stand Alone Forms: Patient Portal/API, Surgery Discharge Discharge Data Primary Care Provider: Rosa Maria Acosta Attending Provider: Leslie Eng
[2022-09-28 07:45] VITALS: BP 112/62; PULSE 78; RESP 21; TEMP 37.2; O2SAT 97
--- NOTE | 2022-09-28 09:28 | PT.IIE ---
Current Diagnoses Unilateral primary osteoarthritis, left hip (09/27/22) Surgery Performed Operation Date: 09/27/22 14:15 Actual Procedures p Total Hip Arthroplasty/Anterior(Left) - Leslie Eng MD Surgical History (Last Updated 09/19/22 @ 09:59 by Marcy Carrillo, RN) History of bilateral tubal ligation History of left mastectomy (1998) History of tonsillectomy History of total replacement of right hip (2009) Hx of appendectomy Hx of bilateral cataract extraction Status post appendectomy Status post laparoscopy Status post partial mastectomy Status post tubal ligation Medical History (Last Updated 09/19/22 @ 10:13 by Marcy Carrillo, RN) Anesthesia complication BCC (basal cell carcinoma) (09/14/22) Breast cancer, left (1998) Deviated septum History of COVID-19 (10/2021) Physical Therapy Inpatient Evaluation/Re-Eval M1 PT/OT-IP Prior Functional Status Start: 09/28/22 09:30 Freq: NEEDED Status: Active Protocol: Document 09/28/22 09:28 DLM (Rec: 09/28/22 10:22 DL [id number]) Medical Review Prior Functional Status Medical History Reviewed Yes Diet/Fluid Consistency Regular Communication WNL Mobility and Gait Independent without device Activities of Daily Living and IADL's Independent, active doing pottery Social History Household Members spouse Living Arrangements House Number of Floors (Floors) One Floor Number of Stairs To Enter/Railing? 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 M2 PT-IP Current Condition Start: 09/28/22 09:30 Freq: NEEDED Status: Active Protocol: Document 09/28/22 09:28 DLM (Rec: 09/28/22 10:22 DL [id number]) Physical Therapy Current Condition Current Condition Evaluation Date 09/28/22 Treatment Diagnosis left anterior MAGALYS, impaired gait/mobility Onset Date 09/27/22 M3 PT-IP Subjective Start: 09/28/22 09:30 Freq: NEEDED Status: Active Protocol: Document 09/28/22 09:28 DLM (Rec: 09/28/22 10:22 DL [id number]) Subjective Physical Therapy Visit Type Type Initial Evaluation Visit Start Time 09:00 Visit Stop Time 09:28 Total Visit Minutes 28 Number of MECHANICAL SHOVEL OPERATOR Visits 0 Physical Therapy Visit Comments Patient Comments She feels ready to go home today. [place] She wants to know when she can stop using the FWW. Patient Goals Discharge home Therapy Pain Assessment Pain When Pain Assessed During Mobility Pain Present Pain Present Pain Reported Location Left Hip Intensity 2 Description Aching,With Movement Pain Management Techniques Re-positioning M4 PT-IP Mobility and Gait Start: 09/28/22 09:30 Freq: NEEDED Status: Active Protocol: Document 09/28/22 09:28 DLM (Rec: 09/28/22 10:22 DLM [id number]) PT-Bed Mobility Assessment Supine to Sit Supine to Sit Independent Sit to Supine Sit to Supine Independent Scooting Scooting to Edge of Bed Independent Scooting Up and Down in Bed Independent PT-Transfer Assessment Sit to and From Stand Sit to and from Stand Independent,Use of Upper Extremities Equipment Transfer Assistive Device Gait Belt,Front Wheeled Walker Transfers Transfer Destination Bed,Chair,Toilet Transfer Technique Stand Step Pivot Transfer Ability Level of Assist Independent,Use of Upper Extremities Comments Mobility Comments provided safety education for pt during sit-stand including safe use of UE's and keeping FWW with her all the time Gait Assessment Gait Gait Assistance Required: Independent Distance (Feet) 250 Able to Maintain Weight Bearing Status Yes During Gait Assistive Devices Assistive Device Gait Belt,Front Wheeled Walker Factors Limiting Gait Function Factors Limiting Gait Function Decreased Strength,Limited Range of Motion,Pain Comments Gait Comments she needs reminders to use the FWW all the time and to slow down, she has a step-through gait pattern and good balance with the FWW Stair Climbing Assessment Evaluation Level of Assist On Stairs Independent Devices Stair Climbing Assistive Devices Left Railing,Right Railing Technique/Endurance Stair Climbing Direction Ascend and Descend Stair Climbing Technique Step to Step Number of Steps Climbed 3 Query Text: Stair Climbing Set # Repetitions (reps) 1 Comments Stair Climbing Comments education for safe sequencing on steps to manage hip pain post-op PT-Balance Assessment Sitting Balance and Reactions Static Sitting Balance Ability Normal Dynamic Sitting Balance Ability Normal Standing Balance and Reactions Static Standing Balance Ability Good Dynamic Standing Balance Ability Good Device Used FWW M5 PT-IP Objective Assessments Start: 09/28/22 09:30 Freq: NEEDED Status: Active Protocol: Document 09/28/22 09:28 DLM (Rec: 09/28/22 10:22 [facility] [id number]) Orientation Orientation/Cognition Level of Alertness Alert Orientation Name,Age,Birthday,Month,Date, Year,Day of Week,Place, Situation Language Function Ability No Deficits Noted Safety Awareness Understands Safety Issues Memory Description No Deficits Noted Comments she is impulsive Gross Range of Motion Upper Extremity ROM Assessment Within Functional Limits Lower Extremity ROM Assessment Left Impaired Impairments post-op limitations after anterior MAGALYS Strength Upper Extremity Strength Assessment Within Functional Limits Lower Extremity Strength Assessment Left Impaired Hip flexion 3+/5 Knee 4+/5 Ankle DF 5/5 Coordination Assessment Gross Coordination Gross Coordination WNL Sensation Assessment Sensation Gross Sensation WNL Muscle Tone Muscle Tone WNL Yes M6 PT-IP Treatment Start: 09/28/22 09:30 Freq: NEEDED Status: Active Protocol: Document 09/28/22 09:28 MEMOM (Rec: 09/28/22 10:22 [facility] [id number]) Physical Therapy Treatment Exercises Exercises Ankle Pumps,Gluteal Sets,Quad Sets,Heel Slides Education Education Provided Precautions,Weight Bearing Status,Post-Op Packet,Safety Other Treatments Other Treatment Performed no family present, adjusted her FWW for home use, educated her in HEP, clarified she is to avoid straight leg raises at this time Requested she speak with her surgeon at follow-up to determine when she can stop using the FWW. M7 PT-IP Assessment and Plan Start: 09/28/22 09:30 Freq: NEEDED Status: Active Protocol: Document 09/28/22 09:28 DLM (Rec: 09/28/22 10:22 [facility] [id number]) PT Summary Assessment and Plan Potential Rehabilitation Potential Excellent Status of Condition at Evaluation Evolving Summary Impairments Pain,ROM,Strength,Bed Mobility ,Transfers,Gait,Activity Tolerance Progress Towards Goals Safe For Discharge Assessment Summary training completed this visit Frequency of Treatment Frequency Of Treatment Discharge Treatment Plan Physical Therapy Treatment Plan Bed Mobility Training,Transfer Training,Gait Training, Therapeutic Exercise,Balance Retraining,Post Op Education, Discharge Planning,Hot or Cold Pack Other Recommendations and Next Treatment education and training Focus completed Precautions Anterior Hip Precautions No Hip Extension,No Hip External Rotation Other Precautions safety reminders needed to slow down and use FWW at all times Weight Bearing Status Weight Bearing Status Weight Bear as Tolerated Recommendations To Nursing Amount of Assist Needed Standby Assistance Discharge Recommendations PT Discharge Recommendations Home with Assistance Other Discharge Recommendations She has her Spouse to assist at discharge, she reports having out-pt PT scheduled Transportation Needs at Discharge Private Vehicle
[2022-09-28] MEDS: MULTIVITAMIN 1 TABLET 1 TAB PO (09:35)
[2022-09-28] MEDS: CHOLECALCIFEROL (VITAMIN D3) 1,000 UNIT TABLET 4000 UNIT PO (09:35)
[2022-09-28] MEDS: DOCUSATE 100 MG CAPSULE PO (09:35)
[2022-09-28] MEDS: ASPIRIN EC 81 MG TABLET PO (09:35)
[2022-09-28 12:03] VITALS: BP 111/68; PULSE 95; RESP 20; TEMP 37.4; O2SAT 97
--- NOTE | 2022-09-28 12:07 | CM.DANOTE ---
Discharge Planning/Care Management CM Discharge Assessment Start: 09/28/22 12:00 Freq: Status: Active Protocol: Document 09/28/22 12:01 CHET (Rec: 09/28/22 12:06 CHET [id number]) Discharge Planning Assessment Assigned Automatic Head Sawyer SAKINA Banegas DPOA/Assigned Designee Name Iker Davis, spouse Contact Information [phone] Advance Directives? Yes Advance Directives on File Yes History Provided By Patient Prior Living Arrangements House Household Members spouse Type of transporation used prior to Drives own vehicle admit Independent with ADL's Yes Is patient alert and oriented? Yes Patient/Family Preference OP PT Therapy Barriers to Discharge No Comment Patient is an active and indp female, resident of [place], works as a self employed potter. POD1 from Total Hip Arthroplasty/ Anterior(Left) - Leslie Eng MD Patient planned to return home w/spouse to assist and has been cleared for this plan, outpatient PT as ordered by Ortho team . No CM needs identified Discharge Plan Home Transportation Arrangement Spouse Referrals Initiated None needed
== END 2022-09-28 13:36 | disposition home or self-care (01) ==
LOC: OR 11:52 → AC 11:53 → ICU 16:10
PROVIDERS: Physician Assistant; PCP Nurse Practitioner Family; Referring Provider Orthopaedic Surgery; Visit Provider Orthopaedic Surgery
PROC: (CPT 27130; principal; 2022-09-27 14:15)
DX: M16.12 Unilateral primary osteoarthritis, left hip (principal)
CPT/HCPCS: 27130; 36415; 73502; 76000; 85014; 85018; 87635; 97162; C1776; C9803; C9290; J0171; J0690; J1100; J2405; J2704; J3010

== ENCOUNTER → 2024-08-05 12:17 | Outpatient (CLI) | payer BC, SELFPAY ==
[2022-09-27 18:13] VITALS: BMI 21.4
--- NOTE | 2024-08-05 12:18 | DI.RAD.S_ITS ---
PROCEDURE: XR DEXA AXIAL SKELETON INDICATIONS: Age-related osteoporosis without current pathologi COMPARISON: [facility], , XR DEXA AXIAL SKELETON, 11/09/2021, 8:56. [facility], CR, XR DEXA AXIAL SKELETON, 08/05/2019, 9:52. FINDINGS: Lumbar Spine: Bone mineral density 1.027 g/cm2, T score 0.1, no statistically significant change. Left Forearm: Bone mineral density 0.576 g/cm2, T score -2.0, no statistically significant change. Fracture Risk Calculation (when applicable): Not applicable (T score greater or equal to -1.0 to: NORMAL) (T score from -1.1 to -2.4: OSTEOPENIA) (T score less than or equal to -2.5: OSTEOPOROSIS) IMPRESSION: Low bone mineral density (osteopenia) by WHO classification. Follow-up guidelines as follows: Osteoporosis: Consider a repeat DEXA and Vertebral Fracture Assessment (VFA) exam in 2 years or sooner if medically necessary, to reassess this patient's status. Osteopenia: Consider a repeat DEXA in 2-3 years to reassess this patient's status, or if there is a new clinical indication. Normal: Consider a repeat DEXA in 5 years or sooner, or if there is a new clinical indication. All treatment decisions require clinical judgment and consideration of individual patient factors, including patient preferences, comorbidities, previous drug use, risk factors not captured in the FRAX model (e.g., frailty, falls, vitamin D deficiency, increased bone turnover, interval significant decline in bone density ) and possible under- or over-estimation of fracture risk by FRAX. In addition, the NOF Guide recommends that FDA-approved medical therapies be considered in postmenopausal women and men age >= 50 years with a: * Hip or vertebral (clinical or morphometric) fracture * T-score of <=-2.5 at the spine or hip * Ten-year fracture probability by FRAX of >= 3% for hip fracture or >=20% for major osteoporotic fracture. Dictated by: Odilon Suh M.D. on 08/05/2024 at 15:13 Approved by: Odilon Suh M.D. on 08/05/2024 at 15:14
== END ==
LOC: RAD 12:17
PROVIDERS: PCP Nurse Practitioner Family; Referring Provider Physician Assistant; Visit Provider Physician Assistant
DX: M81.0 Age-related osteoporosis without current pathological fracture (principal); M85.832 Other specified disorders of bone density and structure, left forearm
CPT/HCPCS: 77080; 77081